=== PATIENT | female | born 1940 | race Caucasian/White ===

== ENCOUNTER → 2017-03-16 | Outpatient (CLI) | payer MEDICARE, BC ==
[~2017-03-16] MED LIST: BENTYL20 MG PO; CIPROFLOXACIN500 M1 PO; FLAGYL500 MG PO; K-DUR 20 MEQ T20 MEQ PO; LOMOTIL TABLET1 EACH PO; SYNTHROID PO
== END ==
LOC: M.MRI 16:00
DX: G31.89 Other specified degenerative diseases of nervous system (principal)

== ENCOUNTER → 2019-03-13 | Outpatient (CLI) | payer MEDICARE, BC | LOC: M.RAD 11:01 | DX: M51.36 Other intervertebral disc degeneration, lumbar region (principal); M85.88 Other specified disorders of bone density and structure, other site; G89.29 Other chronic pain ==

== ENCOUNTER → 2019-03-16 | Outpatient (CLI) | payer MEDICARE, BC | LOC: M.MRI 13:56 | DX: M51.36 Other intervertebral disc degeneration, lumbar region (principal); M51.26 Other intervertebral disc displacement, lumbar region; M48.061 Spinal stenosis, lumbar region without neurogenic claudication; G89.29 Other chronic pain ==

== ENCOUNTER → 2019-03-27 | Outpatient (CLI) | payer MEDICARE, BC ==
[~2019-03-27] MED LIST changes: +ACETAMINOPHEN500 MG PO; +IBUPROFEN 800800 M1 PO; +NEXIUM 24HR20 M2 PO; -SYNTHROID PO; +SYNTHROID88 MC1 PO; +ZYRTEC10 M4 PO
== END ==
LOC: M.PC 05:45
DX: M47.816 Spondylosis without myelopathy or radiculopathy, lumbar region (principal); M51.36 Other intervertebral disc degeneration, lumbar region; M79.604 Pain in right leg; M79.605 Pain in left leg; M48.061 Spinal stenosis, lumbar region without neurogenic claudication

== ENCOUNTER → 2019-04-13 | Outpatient (CLI) | payer MEDICARE, BC | LOC: M.RAD 14:19 | DX: M85.80 Other specified disorders of bone density and structure, unspecified site (principal); Z78.0 Asymptomatic menopausal state ==

== ENCOUNTER → 2019-10-18 | Outpatient (CLI) | payer MEDICARE, BC | LOC: M.PC 04:38 | PROVIDERS: ATTEND Physical Medicine & Rehabilitation | DX: M51.36 Other intervertebral disc degeneration, lumbar region (principal); M47.816 Spondylosis without myelopathy or radiculopathy, lumbar region; M79.605 Pain in left leg; M79.604 Pain in right leg ==

== ENCOUNTER → 2019-10-25 | Outpatient (CLI) | payer MEDICARE, BC | END | disposition home or self-care (01) | LOC: M.PC 13:45 | PROVIDERS: ATTEND Physical Medicine & Rehabilitation | DX: M54.5 Low back pain (principal); M79.605 Pain in left leg; M54.16 Radiculopathy, lumbar region; Z79.899 Other long term (current) drug therapy; Z88.8 Allergy status to other drugs, medicaments and biological substances ==

== ENCOUNTER → 2019-11-15 | Outpatient (CLI) | payer MEDICARE, BC | LOC: M.PC 10:00 | PROVIDERS: ATTEND Physical Medicine & Rehabilitation | DX: M47.817 Spondylosis without myelopathy or radiculopathy, lumbosacral region (principal); M79.605 Pain in left leg; M48.061 Spinal stenosis, lumbar region without neurogenic claudication; M79.604 Pain in right leg ==